=== PATIENT | female | born 1970 | race Caucasian/White ===

== ENCOUNTER 2023-11-03 12:13 | Outpatient (CLI) | payer MEDICAID | END 2023-11-03 23:59 | disposition home or self-care (01) | LOC: RAD 12:13 | PROVIDERS: ATTEND Nurse Practitioner Family | DX: M54.50 Low back pain, unspecified (principal) | CPT/HCPCS: 72110; 72200 ==

== ENCOUNTER 2024-12-29 13:58 | Outpatient (CLI) | payer MEDICAID ==
[~2024-12-29] VITALS: Ht 169.5 cm; Wt 81.6 kg
[2024-12-29 14:34] VITALS: PULSE 76; RESP 16; O2SAT 98
[2024-12-29 14:45] VITALS: PULSE 78; RESP 16
[2024-12-29] MEDS: albuterol 2.5 MG/3 ML nebule NEB ONE (14:49)
--- NOTE | 2024-12-29 17:11 | PROCEDURE NOTE - Respiratory ---
Procedure Note-Respiratory Providers to CC Copies To 1: AILYN WEINBERG BC Procedure Name: This is a spirometry study dated December 29, 2024. The spirometry study was performed both before and after inhaled bronchodilator. Spirometry measurements: Both the forced vital capacity and the FEV1 measurements are in the normal range. The FEV1 ratio is also normal. All of the measured flow rates are normal. After inhaled bronchodilator was administered, there is not much change in the flow volume curve. Conclusion: Normal spirometry study. We have no previous studies for comparison. KAYLAH TANNER MD Dec 29, 2024 17:11
== END 2024-12-29 23:59 | disposition home or self-care (01) ==
LOC: RT 13:58
PROVIDERS: ATTEND Nurse Practitioner Family
DX: R06.02 Shortness of breath (principal); R05.9 Cough, unspecified
CPT/HCPCS: 94060; 94760